=== PATIENT | female | born 1995 | race Caucasian/White ===

== ENCOUNTER 2016-12-02 15:04 | Emergency (ER) | payer OTHER ==
[2016-12-02 15:04] VITALS: BMI 21.4
[2016-12-02 15:16] VITALS: BP 103/64; PULSE 64; RESP 20; TEMP 98.3; O2SAT 100
[2016-12-02] MEDS ORDERED: cefTRIAXone (Rocephin) 250 mg Inj IM STA (16:12)
--- NOTE | 2016-12-02 16:16 | C.PDOC ---
History Of Present Illness Patient presents to ED c/o suprapubic/pelvic pain, and vaginal discharge x 2 days. Patient states she is s/p spontaneous miscarriage Aug 2016 due to an "infection" - specifics unknown. She called her rehabilitation services counselor Dr. Geronimo today, was told he doesn't take her insurance and she should come to ED for evaluation. She admits to dyspareunia as well. Patient denies dysuria/hematuria, fever, vomiting/diarrhea. Time Seen by Provider: 12/02/16 15:22 Chief Complaint (Nursing): Female Genitourinary History Per: Patient History/Exam Limitations: no limitations Severity: Mild Quality Of Discomfort: "Pain" Abnormal Vaginal Bleeding: No Past Medical History Reviewed: Historical Data, Nursing Documentation, Vital Signs Vital Signs: Last Vital Signs Temp 98.3 F 12/02/16 15:15 Pulse 64 12/02/16 15:15 Resp 20 12/02/16 15:15 BP 103/64 12/02/16 15:15 Pulse Ox 100 12/02/16 16:29 - Medical History PMH: Anemia (IRON DEFICIENCY) - [facility] Procedures REPAIR OB LACERATION NEC (11/04/14) Family History: States: No Known Family Hx - Social History Hx Tobacco Use: No Hx Alcohol Use: No Hx Substance Use: No Review Of Systems Except As Marked, All Systems Reviewed And Found Negative. Constitutional: Negative for: Fever, Chills Respiratory: Negative for: Cough, Shortness of Breath Gastrointestinal: Negative for: Nausea, Vomiting, Abdominal Pain Genitourinary: Positive for: Vaginal Discharge, Pelvic Pain. Negative for: Dysuria, Hematuria, Vaginal Bleeding Skin: Negative for: Rash Physical Exam - Physical Exam Appears: Well, Non-toxic, No Acute Distress Head: Normacephalic Eye(s): bilateral: Normal Inspection Oral Mucosa: Moist Cardiovascular: Rhythm Regular Respiratory: Normal Breath Sounds, No Rales, No Rhonchi, No Wheezing Gastrointestinal/Abdominal: Bowel Sounds, Soft, Tenderness (mild suprapubic TTP) , No Distention, No Guarding, No Rebound Pelvic: No Normal External Exam (labia irritated and erythematous appearing), No Normal Speculum Exam (patient refused), No Normal Bimanual Exam (refused) Neurological/Psych: Oriented x3 ED Course And Treatment O2 Sat by Pulse Oximetry: 100 (RA) Pulse Ox Interpretation: Normal Progress Note: Urinalysis, Upreg ordered. Patient taken to [facility] for pelvic exam , then refused to have internal exam (speculum/bimanual). Explained to patient that without exam, I am unable to specifically diagnose her problem. History and external exam suspicious for STD vs candidiasis. Patient given IM Rocephin and PO Azithromycin in ED. She was given Rxs for Diflucan and Flagyl as well, and instructed to follow up with rehabilitation services counselor in 1-2 days. She understands she should return to ED if symptoms worsen. Disposition Counseled Patient/Family Regarding: Diagnosis, Need For Followup, Rx Given - Disposition Referrals: [facility] [Outside] [facility] [Outside] Lukas Geronimo [Staff Provider] - Disposition: HOME/ ROUTINE Disposition Time: 17:00 Condition: STABLE Additional Instructions: FOLLOW UP WITH YOUR LOBBY CONCIERGE/CLINIC IN 1-2 DAYS USE MEDICATIONS DIRECTED RETURN TO ER IF SYMPTOMS WORSEN Prescriptions: Fluconazole [Diflucan] 150 mg PO ONCE #2 tab metroNIDAZOLE [Flagyl] 500 mg PO BID #14 tab Instructions: Vaginal Discharge (ED) Print Language: HUNGARIAN - POA Present On Arrival: None - Clinical Impression Clinical Impression: Vaginal discharge
[2016-12-02 16:18] LABS: RBC URINE 1 /hpf (0-3); URINE BACTERIA FEW (<OCC); URINE BILIRUBIN NEGATIVE (NEGATIVE); URINE BLOOD NEGATIVE (NEGATIVE); URINE COLOR Yellow (YELLOW); URINE GLUCOSE (UA) NORMAL (Normal); URINE KETONE NEGATIVE (NEGATIVE); URINE LEUKOCYTE ESTERASE 2+ Leu/uL (Negative); URINE PROTEIN NEGATIVE (NEGATIVE); URINE UROBILINOGEN NORMAL mg/dL (0.2-1.0); WBC URINE 13 /hpf (0-5)
== END 2016-12-02 17:34 | disposition home or self-care (01) ==
LOC: C.ER 15:04
DX: N89.8 Other specified noninflammatory disorders of vagina (principal)
CPT/HCPCS: 81001; 84703; 87086; 96372; 99284; J0696

== ENCOUNTER 2018-06-12 12:58 | Emergency (ER) | payer OTHER ==
[2018-06-12 12:58] VITALS: BMI 21.4
[2018-06-12] MEDS ORDERED: Sodium Chloride 0.9% 1,000 ML IV ONE (13:55)
[2018-06-12 14:07] LABS: HCG,QUALITATIVE URINE POSITIVE (NEGATIVE)
[2018-06-12 14:09] LABS: SQUAMOUS EPITHIAL 4 /hpf (0-5); URINE BACTERIA OCC (<OCC); URINE BILIRUBIN NEGATIVE (NEGATIVE); URINE BLOOD NEGATIVE (NEGATIVE); URINE CLARITY Clear (Clear); URINE COLOR Straw (YELLOW); URINE GLUCOSE (UA) NORMAL (Normal); URINE LEUKOCYTE ESTERASE 3+ Leu/uL (Negative); URINE PROTEIN NEGATIVE (NEGATIVE); URINE UROBILINOGEN NORMAL mg/dL (0.2-1.0)
--- NOTE | 2018-06-12 15:27 | US ---
Date of service: 06/12/2018 PROCEDURE: OB Pelvic Ultrasound HISTORY: pain LMP: COMPARISON: None available. FINDINGS: UTERUS: Gestational sac: 27 mm diameter equivalent to 7 weeks 4 days gestational age [place]-rump length 11 mm equivalent to 7 weeks 1 day gestational age. Heart rate: 163 bpm. age (Ultrasound estimated): 7 weeks 3 days [place]-gestational hemorrhage: None. Date of delivery (Ultrasound estimated) : Uterus measures 10.6 x 6.4 x 7.1 cm. Uterus retroverted. No uterine mass.. CERVIX: Measures 3.9 cm. Long and closed. No cervical abnormality seen. RIGHT OVARY: Measures 3.8 x 2.5 x 2.4 cm. Corpus luteum identified measuring 2.2 x 2.3 x 1.7 cm.. Normal flow. LEFT OVARY: Measures 3.4 x 1.5 x 2.7 cm. No solid mass. Normal flow. FREE FLUID: Small amount in cul-de-sac and right adnexal region OTHER FINDINGS: None. IMPRESSION: Single live intrauterine gestation of approximately 7 weeks 3 days gestational age. No subchorionic hemorrhage. heart rate 163 beats per minute. Incidentally noted right ovarian corpus luteum. Small amount of free fluid incidentally noted in cul-de-sac and right adnexa.
[2018-06-12 15:30] LABS: BASO # 0.1 K/uL (0.0-0.2); BASO % 1.1 % (0.0-2.0); EOS % 0.6 % (0.0-4.0); HEMOGLOBIN 12.3 g/dL (11.0-16.0); LYMPH # 1.9 K/uL (1.0-4.3); LYMPH % 25.6 % (20.0-40.0); MEAN CELL VOLUME 75.2 fL (81.0-99.0); MEAN CORPUSCULAR HEMOGLOBIN 24.9 pg (27.0-31.0); MEAN CORPUSCULAR HGB CONC 33.1 g/dL (33.0-37.0); MEAN PLATELET VOLUME 9.2 fL (7.2-11.7); MONO # 0.5 K/uL (0.0-0.8); MONO % 6.6 % (0.0-10.0); NEUT % 66.1 % (50.0-75.0); RBC 4.94 Mil/uL (3.80-5.20); RED CELL DISTRIBUTION WIDTH 14.4 % (11.5-14.5); WHITE BLOOD COUNT 7.5 K/uL (4.8-10.8)
--- NOTE | 2018-06-12 15:35 | C.PDOC ---
History Of Present Illness 22 year old female, , who is 8 weeks ; presents to the ED for evaluation of lower abdominal pain associated with dysuria and urinary frequency for one week. Patient also reports constipation and feeling bloated. She had a bowel movement today, but states she had to strain and the stool was hard. She also reports back pain. Patient denies fever, n/v, chest pain, sob, vaginal bleeding or discharge. Time Seen by Provider: 06/12/18 13:24 Chief Complaint (Nursing): Abdominal Pain History Per: Patient History/Exam Limitations: no limitations Onset/Duration Of Symptoms: Days Current Symptoms Are (Timing): Still Present Location Of Pain/Discomfort: Other (lower abdomen ) Radiation Of Pain To:: Back Quality Of Discomfort: "Pain" Associated Symptoms: Constipation, Urinary Symptoms (dysuria ). denies: Fever, Chills Last Bowel Movement: Today Additional History Per: Patient Abnormal Vaginal Bleeding: No Past Medical History Reviewed: Historical Data, Nursing Documentation, Vital Signs Vital Signs: Last Vital Signs Temp 98.5 F 06/12/18 13:21 Pulse 70 06/12/18 13:21 Resp 18 06/12/18 13:21 BP 101/68 06/12/18 13:21 Pulse Ox 99 06/12/18 13:21 - Medical History PMH: Anemia (IRON DEFICIENCY) Denies: Chronic Kidney Disease Surgical History: No Surg Hx - [facility] Procedures REPAIR OB LACERATION NEC (11/04/14) Family History: States: Unknown Family Hx - Social History Hx Tobacco Use: No Hx Alcohol Use: No Hx Substance Use: No - Immunization History Hx Tetanus Toxoid Vaccination: No Hx Influenza Vaccination: No Review Of Systems Except As Marked, All Systems Reviewed And Found Negative. Constitutional: Negative for: Chills Gastrointestinal: Positive for: Abdominal Pain (lower abdomen ), Constipation Genitourinary: Positive for: Dysuria. Negative for: Vaginal Discharge, Vaginal Bleeding Musculoskeletal: Positive for: Back Pain Physical Exam - Physical Exam Appears: Non-toxic, No Acute Distress Skin: Normal Color, Warm, Dry Head: Atraumatic, Normacephalic Eye(s): bilateral: Normal Inspection, EOMI Nose: Normal Oral Mucosa: Moist Neck: Normal ROM, Supple Chest: Symmetrical, No Deformity, No Tenderness Cardiovascular: Rhythm Regular Respiratory: Normal Breath Sounds, No Rales, No Rhonchi, No Wheezing Gastrointestinal/Abdominal: Soft, Tenderness (suprapubic), No Guarding, No Rebound Back: No CVA Tenderness, No Vertebral Tenderness, Paraspinal Tenderness (lower paralumbar tenderness) Pelvic: Other (declined ) Extremity: Normal ROM, Capillary Refill (less than 2 seconds ) Neurological/Psych: Oriented x3, Normal Speech, Normal Cognition ED Course And Treatment - Laboratory Results Result Diagrams: 06/12/18 15:27 06/12/18 15:27 O2 Sat by Pulse Oximetry: 99 (on RA) Pulse Ox Interpretation: Normal - CT Scan/US OB ultrasound Other Rad Studies (CT/US): Read By Radiologist, Radiology Report Reviewed CT/US Interpretation: Date of service: 06/12/2018. PROCEDURE: OB Pelvic Ultrasound. HISTORY: pain. LMP: COMPARISON: None available. FINDINGS: UTERUS: Gestational sac: 27 mm diameter equivalent to 7 weeks 4 days gestational age. [place]-rump length 11 mm equivalent to 7 weeks 1 day gestational age. Heart rate: 163 bpm. age (Ultrasound estimated): 7 weeks 3 days. [place]-gestational hemorrhage: None. Date of delivery (Ultrasound estimated) : Uterus measures 10.6 x 6.4 x 7.1 cm. Uterus retroverted. No uterine mass.. CERVIX: Measures 3.9 cm. Long and closed. No cervical abnormality seen. RIGHT OVARY: Measures 3.8 x 2.5 x 2.4 cm. Corpus luteum identified measuring 2.2 x 2.3 x 1.7 cm.. Normal flow. LEFT OVARY: Measures 3.4 x 1.5 x 2.7 cm. No solid mass. Normal flow. FREE FLUID: Small amount in cul-de-sac and right adnexal region. OTHER FINDINGS: None. IMPRESSION: Single live intrauterine gestation of approximately 7 weeks 3 days gestational age. No subchorionic hemorrhage. heart rate 163 beats per minute. Incidentally noted right ovarian corpus luteum. Small amount of free fluid incidentally noted in cul-de-sac and right adnexa. Progress Note: Pt is has clinical symptoms of UTI, with leuk est 3+ therefore will be treated for UTI. Pt was given work up results and instructed to follow up with her OB in 1-2 days for re-evaluation. Case discussed with Dr Connolly who evlauted work up and agreed upon plan and treatment. Disposition - Disposition Disposition: HOME/ ROUTINE Disposition Time: 15:35 Condition: STABLE Additional Instructions: Follow up with your primary medical doctor or clinic in 2-5 days for further evaluation. Take medications as prescribed. Return to the emergency department at any time if symptoms persist or worsen. Prescriptions: Nitrofurantoin Macrocrystals [Macrobid] 1 cap PO BID #10 cap Polyethylene Glycol 3350 [Miralax] 17 gm PO DAILY #85 gm Instructions: Constipation, Adult (DC) Forms: [employer] (Belizean) - Clinical Impression Clinical Impression: Constipation, UTI (urinary tract infection) - PA / [employer]TENA[employer]CE SUPERVISOR / Resident Statement MD/DO has reviewed & agrees with the documentation as recorded. - Scribe Statement The provider has reviewed the documentation as recorded by the Scribe (Bertha Vera) All medical record entries made by the Scribe were at my direction and personally dictated by me. I have reviewed the chart and agree that the record accurately reflects my personal performance of the history, physical exam, medical decision making, and the department course for this patient. I have also personally directed, reviewed, and agree with the discharge instructions and disposition.
[2018-06-12 15:44] LABS: ALB/GLOB RATIO 1.4 (1.0-2.1); ALBUMIN 4.6 g/dL (3.5-5.0); ALT/SGPT 22 U/L (9-52); AST/SGOT 20 U/L (14-36); BLOOD UREA NITROGEN 9 mg/dL (7-17); CALCIUM 10.1 mg/dl (8.6-10.4); GFR NON-AFRICAN AMERICAN > 60
[2018-06-12 16:45] VITALS: BP 113/72; PULSE 64; RESP 16; TEMP 98.1
[2018-06-12 17:40] VITALS: O2SAT 99
== END 2018-06-12 16:45 | disposition home or self-care (01) ==
LOC: C.ER 12:58
DX: O23.41 Unspecified infection of urinary tract in pregnancy, first trimester (principal); K59.00 Constipation, unspecified; Z3A.08 8 weeks gestation of pregnancy